=== PATIENT | male | born 1940 | race African-American/Black ===

== ENCOUNTER → 2017-05-27 | Outpatient (CLI) | payer OTHER ==
[2016-10-22 19:49] VITALS: BP 135/81
[2017-05-27 12:26] LABS: BASOPHILS % (AUTO) 0.9 % (0.2-1.0); EOSINOPHILS # (AUTO) 0.2 x10^3/uL (0.0-0.2); EOSINOPHILS % (AUTO) 5.2 % (0.9-2.9); HEMATOCRIT 36.7 % (42.0-54.0); HEMOGLOBIN 12.4 g/dL (13.5-18.0); LYMPHOCYTES % (AUTO) 25.6 % (21.0-51.0); MEAN CORPUSCULAR HEMOGLOBIN 29.8 pg (27.0-34.0); MEAN CORPUSCULAR HGB CONC 33.9 g/dL (33.0-35.0); MEAN CORPUSCULAR VOLUME 87.8 fL (80.0-100.0); MEAN PLATELET VOLUME 8.1 fL (7.4-11.0); MONOCYTES # (AUTO) 0.4 x10^3/uL (0.3-0.8); MONOCYTES % (AUTO) 10.8 % (0.0-13.0); NEUTROPHILS # (AUTO) 2.3 x10^3/uL (2.2-4.8); NEUTROPHILS % (AUTO) 57.5 % (42.0-75.0); PLATELET COUNT 182 X10^3/uL (150.0-450.0); RED BLOOD COUNT 4.18 X10^6/uL (4.7-6.0)
[2017-05-27 12:32] LABS: BLOOD UREA NITROGEN 15 mg/dL (7-18); CALCIUM 8.7 mg/dL (8.5-10.1); CARBON DIOXIDE 33.1 mmol/L (21-32); CHLORIDE 108 mmol/L (98-107); CREATININE 0.63 mg/dL (0.70-1.30); GLUCOSE 88 mg/dL (65-99); SODIUM 141 mmol/L (136-145); eGFR BLACK RACES > 60 (>60); eGFR NON BLACK RACES > 60 (>60)
== END ==
LOC: LAB 11:59
PROVIDERS: ATTEND Internal Medicine Cardiovascular Disease
DX: I10 Essential (primary) hypertension (principal); Z79.01 Long term (current) use of anticoagulants
CPT/HCPCS: 36415; 80048; 85025; 85610; 85730

== ENCOUNTER 2017-06-08 23:11 | Emergency (ER) | payer OTHER ==
[2017-06-08 23:16] VITALS: BP 133/75; BMI 27.1
[2017-06-08 23:48] LABS: BILIRUBIN,URINE NEGATIVE (NEGATIVE); BLOOD/HEMOGLOBIN,URINE 5+ (NEGATIVE); GLUCOSE, URINE NEGATIVE (NEGATIVE); KETONES,URINE NEGATIVE (NEGATIVE); LEUKOCYTE ESTERASE ,URINE 3+ (NEGATIVE); NITRITES,URINE NEGATIVE (NEGATIVE); PROTEIN,URINE 3+ (NEGATIVE); UROBILINOGEN,URINE NORMAL (NORMAL)
[2017-06-08 23:58] LABS: APPEARANCE,URINE CLOUDY (CLEAR); BACTERIA,URINE 2+ /HPF (NEGATIVE); COLOR,URINE BROWN (YELLOW); RBC,URINE TNTC /HPF (NEGATIVE); SQUAMOUS EPITHELIAL CELL,UR FEW /HPF (NEGATIVE)
[2017-06-09] MEDS ORDERED: TORADOL 60 MG VIAL IM ONE (00:04)
[2017-06-09] MEDS ORDERED: LEVAQUIN TAB 500 MG ONE (00:07)
[2017-06-09] MEDS ORDERED: TORADOL 60 MG VIAL ONE (00:07)
--- NOTE | 2017-06-09 00:09 | DR.GENAD ---
HPI - PCP Primary Care Physician: BENJAMÍN MOON - Complaint/Symptoms Chief Complaint Doctors Comments: Patient states he has been having severe LLQ pain for the past four hours getting progressively worst with hematuria. states he started having pain LLQ about 4 hours ago before the football game came and and he decided to law down for a few hours and when he woke up he went to the bathroom with a lot of blood in his urine since around 7pm. He denies chest pain, nasuea or vomiting. He denies any recent trauma. states the pain is about 5 of 10. Chief Complaint:: PT STATES" IT TRAVIS REAL BAD WHEN I PEE, MY LT LOWER BELLY HURTS" - Nurses notes reviewed Nurses Notes Review: Yes - Source History Provided: Patient - Mode of Arrival Mode of Arrival: Ambulatory - Timing Onset of Chief Complaint: 06/08/17 Came on: Gradually - Duration Duration: Constant How lon Duration: Hours - Location Location: left lower abdomen - Severity Severity: Moderate, Severe - Modifying Factors Worsens:: nothing Improves:: nothing PMH - PMH Past Medical History: Yes Past Medical History: Angina, Asthma Past Surgical History: Yes Surgical History: Angioplasty/Stents - Family History History of Family Medical Conditions: Yes Family Medical History: Cancer, [place] - Social History Does any household member use tobacco: No Alcohol Use: None Do you use any recreational Drugs:: No Lives With: Family Lives Where: Home - infectious screening In the last 2 months have you had wt loss of >10#?: NO Have you had fever, night sweats or hemotysis?: No Have you traveled outside the country in the last 6 months?: No Isolation: Standard ROS - Review of Systems Constitutional: No Symptoms Reported. negative: See HPI, Chills, Diaphoresis, Fever, Malaise, Weakness, Irritable, Fatigue, Loss of Appetite, Other Eyes: No Symptoms Reported. negative: See HPI, Eye Pain, Blurred Vision, Tearing, Discharge, Photophobia, Diplopia, Other ENTM: No Symptoms Reported Respiratoy: No Symptoms Reported Cardiovascular: No Symptoms Reported. negative: See HPI, Chest Pain, Edema, Palpitations, Syncope, Cyanosis, Skin Mottling, Other Gastrointestinal/Abdominal: No Symptoms Reported, Abdominal Pain. negative: See HPI, Constipation, Diarrhea, Nausea, Vomiting, Food Intolerance, Other Genitourinary: No Symptoms Reported, Dysuria, Hematuria. negative: See HPI, Discharge, Frequency, Pain, Bleeding, Other Neurological: No Symptoms Reported Musculoskeletal: No Symptoms Reported, Back Integumentary: No Symptoms Reported Hematologic/Lymphatic: No Symptoms Reported. negative: See HPI, Anemia, Blood Clots, Easy Bleeding, Easy Bruising, Swollen Glands, Lymphadenopathy, Other Endocrine: No Symptoms Reported. negative: See HPI, Excessive Sweating, Flushing, Intolerance to Cold, Intolerance to Heat, Increased Hunger, Increased Thirst, Increased Urine, Unexplained Weight Gain, Unexplained Weight Loss, Failure to Thrive, Decreased Appetite, Other Psychiatric: No Symptoms Reported. negative: See HPI, Anxiety, Depression, Hallucinations, Excessive crying, Suicidal, Other PE - Vital Signs Vitals: Temperature 98.6 F Pulse Rate 92 Respiratory Rate 18 Blood Pressure [Left Arm] 137/85 Blood Pressure 133/75 O2 Sat by Pulse Oximetry 97 - General Limitations: No Limitations General Appearance: Alert, In Distress (moderate) - Head Head Exam: Normal Inspection, Atraumatic, Normocephalic - Eyes Eye exam: Normal Appearance, PERRL, EOMI. negative: Scleral Icterus, Conjunctival Injection, Nystagmus, Miosis, Mydrasis, Periorbital Swelling, Periorbital Tenderness, Other - ENT ENT Exam: Normal Exam, Normal Oropharynx, Normal External Ear Exam, Mucous Membranes Moist, TM's Normal Bilaterally External Ear Exam: Normal External Inspection TM/Canal Exam: Bilateral Normal Nose Exam: Normal Nose Exam Mouth Exam: Normal Inspection. negative: Drooling, Trismus, Lip Swelling, Tongue Elevation, Tongue Swelling, Laceration, Other Throat Exam: Normal Inspection. negative: Tonsillar Erythema, Tonsillomegaly, Tonsillar Exudate, R Peritonsillar Mass, L Peritonsillar Mass, Muffled Voice, Other - Neck Neck Exam: Normal Inspection, Full ROM, Trachea Midline. negative: Tenderness, Meningismus, Lymphadenopathy, Thyromegaly, Other - Chest Chest Inspection: Normal Inspection, Symmetric Chest Wall Rise. negative: Tenderness, Rash, Abscess, Other - Respiratory Respiratory Exam: Normal Lung Sounds Bilat. negative: Accessory Muscle Use, Chest Wall Tenderness, Prolonged Expiratory Phase, Respiratory Distress, Stridor , Other Respiratory Exam: Bilateral Clear to Auscultation - Cardiovascular Cardiovascular Exam: Regular Rate, Normal Rhythm, Normal Heart Sounds. negative : Bradycardia, Tachycardia, Irregular Rhythm, Systolic Murmur, Diastolic Murmur , Rubs, Gallop, Clicks, JVD, +S1, +S2, +S3, +S4, Other - Abdominal Exam Abdominal Exam: Normal Inspection, Normal Bowel Sounds, Soft, Tenderness (LLQ tenderness with guarding), Guarding, Dimnished Bowel Sounds, Hernia (left inguinal fullness 3-4 cm) Abdominal Tenderness: LLQ, Moderate - Extremities Extremities Exam: Normal Inspection, Full ROM, Normal Capillary Refill. negative: Tenderness, Edema, Joint Swelling, Calf Tenderness, Other - Back Back Exam: Normal Inspection, Full ROM, (L) CVA Tenderness - Neurologic Neurological Exam: Alert, Oriented X3, CN II-XII Intact, Reflexes Normal. negative: Normal Gait (gait not tested) - Psychiatric Psychiatric Exam: Normal Affect, Normal Mood. negative: Depressed, Agitated, Anxious, Flat Affect, Manic, Homicidal Ideation, Suicidal Ideation, Other - Skin Skin Exam: Warm, Dry, Intact, Normal Color ROR - Labs Reviewed Laboratory Results Reviewed?: Yes (all labs and x-ray results reviewed and discussed with parent and his sons) Laboratory: Specimen Type Clean catch urine 06/08/17 23:38 Urine Color Brown (YELLOW) 06/08/17 23:38 Urine Appearance Cloudy (CLEAR) 06/08/17 23:38 Urine pH 6.0 (5.0 - 8.0) 06/08/17 23:38 Ur Specific [place] 1.020 (1.000-1.030) 06/08/17 23:38 Urine Protein 3+ (NEGATIVE) 06/08/17 23:38 Urine Glucose (UA) Negative (NEGATIVE) 06/08/17 23:38 Urine Ketones Negative (NEGATIVE) 06/08/17 23:38 Urine Occult Blood 5+ (NEGATIVE) 06/08/17 23:38 Urine Nitrite Negative (NEGATIVE) 06/08/17 23:38 Urine Bilirubin Negative (NEGATIVE) 06/08/17 23:38 Urine Urobilinogen Normal (NORMAL) 06/08/17 23:38 Ur Leukocyte Esterase 3+ (NEGATIVE) 06/08/17 23:38 Urine RBC Tntc /HPF (NEGATIVE) 06/08/17 23:38 Urine WBC Tntc /HPF (NEGATIVE) 06/08/17 23:38 Ur Squamous Epith Cells Few /HPF (NEGATIVE) 06/08/17 23:38 Urine Bacteria 2+ /HPF (NEGATIVE) 06/08/17 23:38 Ur Culture Indicated? Yes/culture set up 06/08/17 23:38 - XRAY XRAY Interpreted by: Radiologist (CT abdomen: Minimalinflammatory change proximal sigmoid colon suggestive for early diverticulitis and prostatitis. Nonobstrutiing bilateral lower pole renal stones.) - Diagnosis Discharge Problem: Diverticulitis of colon, Bilateral kidney stones, Prostatitis Abdominal pain Qualifiers: Abdominal location: left lower quadrant Qualified Code(s): R10.32 - Left lower quadrant pain Urinary tract infection Qualifiers: Urinary tract infection type: site unspecified - Discharge Plan Disposition: 01 HOME, SELF-CARE Condition: Stable Prescriptions: Levofloxacin [LEVAQUIN TAB 500 MG *] 500 mg PO Q24H #10 tab Metronidazole [Flagyl Tab 250 mg] 250 mg PO TID #30 tab Tramadol HCl [ULTRAM 50 MG *] 50 mg PO BID PRN #30 tab PRN Reason: Pain - Follow ups/Referrals Follow ups/Referrals: NFD,None [Primary Care Provider] - 3 days - Instructions Instructions: Urinary Tract Infection, Adult, Urinary Tract Infection, Adult, [id number], Diverticulitis, [id number], Kidney Stones, [id number], Hematuria, Pediatric, Abdominal Pain, Adult, [id number]
[2017-06-09] MEDS ORDERED: LEVAQUIN TAB 500 MG PO SCH (01:00)
--- NOTE | 2017-06-09 01:37 | CT ---
CT abdomen and pelvis without contrast Indication: Left lower quadrant pain. Hematuria. Comparison: 11/02/2014. Technique: CT images of the abdomen and pelvis were obtained without contrast. Automatic exposure con trol was utilized. Findings: There is marked lower lumbar spondylosis. Generalized osteopenia. No aggressive osseous les ions are seen. The lung bases are clear. Within the limitations of a noncontrast study, the liver, gallbladder, spleen, stomach, pancreas, and adrenals demonstrate no significant abnormality. There are punctate bilateral lower pole renal stone s. There is no hydronephrosis. No ureteral stones are identified. Note is made of 2 thin linear hyper densities within the proximal small bowel, both measuring approximately 2-2.5 cm in length and approx imately 2 mm in thickness. One of these seen within the duodenum (coronal image 27 and 28), with the other and the jejunum (coronal image 18). No marked associated bowel inflammation in these regions ap preciated. There are scattered colonic diverticula. There is some minimal pericolonic fat stranding with mesente nicholas congestion seen within the left lower quadrant adjacent to a short segment of the proximal sigmoi d. No pericolonic collection is seen. There is otherwise no significant bowel thickening or dilatatio n of the lower GI tract. The appendix appears normal. The urinary bladder and rectum are unremarkable. The prostate is normal in size, but there is lower p elvic fat stranding, appearing to be centered in the region of the prostate and mildly enlarged Semin al vesicles. No free fluid or adenopathy identified. Impression: 1. Minimal inflammatory change adjacent to a short segment of the proximal sigmoid colon is suggestiv e for early/mild diverticulitis. No evidence for abscess. 2. Fat stranding of the lower pelvis in the region of the prostate and seminal vesicles, suggesting p rostatitis. Correlation is recommended. 3. There are 2 thin linear hyperdensities within the proximal small bowel lumen as above, suggestive for ingested foreign bodies, possibly bones. There is no obvious bowel inflammation in these regions. 4. Punctate nonobstructing bilateral lower pole renal stones. Reported By:
[2017-06-09] MEDS ORDERED: FLAGYL TAB 250 MG PO ONE ×2 (02:19→02:24)
[2017-06-09] MEDS ORDERED: TYLENOL #3 TAB (W/CODEINE) PO STA (02:19)
[2017-06-09] MEDS ORDERED: PROTONIX TAB 40 MG PO ONE ×2 (02:20→02:24)
[2017-06-09] MEDS ORDERED: TYLENOL #3 TAB (W/CODEINE) PO ONE (02:24)
== END 2017-06-09 02:35 | disposition home or self-care (01) ==
LOC: ER 23:11
DX: K57.30 Diverticulosis of large intestine without perforation or abscess without bleeding (principal); N20.0 Calculus of kidney; N41.9 Inflammatory disease of prostate, unspecified; R10.32 Left lower quadrant pain; N39.0 Urinary tract infection, site not specified; B96.29 Other Escherichia coli [E. coli] as the cause of diseases classified elsewhere
CPT/HCPCS: 74176; 81001; 87086; 87088; 87186; 96372; 99283; J1885

== ENCOUNTER 2017-07-10 15:42 | Emergency (ER) | payer OTHER ==
[2017-07-10 16:05] VITALS: BP 143/78; BMI 28.9
[2017-07-10] MEDS ORDERED: DEMEROL INJ IM ONE (16:11)
[2017-07-10] MEDS ORDERED: DEMEROL INJ ONE (16:14)
--- NOTE | 2017-07-10 16:14 | DR.EXTPAIN ---
HPI - Time seen Time seen: 16:10 - PCP Primary Care Physician: DC GOFF GA - Complaint/Symptoms Chief Complaint Doctor Comments: Running to get into the house missed the step and injured his right ankle. Admits to being swollen 10 in severity, quality sharp, modifying factor ambulation. Chief Complaint:: RUNNING IN FROM THE RAIN AND FELL AFTER HE MISSED THE STEPS - Source History Provided: Patient - Mode of arrival Mode of Arrival: Ambulatory - Timing Onset of Chief Complaint: 07/10/17 PMH - PMH Past Medical History: Yes Past Medical History: Angina, Asthma Past Surgical History: Yes Surgical History: Angioplasty/Stents - Family History History of Family Medical Conditions: Yes Family Medical History: Cancer, [place] - Social History Type of Tobacco Use: None Alcohol Use: None Do you use any recreational Drugs:: No Lives With: Family Lives Where: Home - infectious screening In the last 2 months have you had wt loss of >10#?: NO Have you had fever, night sweats or hemotysis?: No Have you traveled outside the country in the last 6 months?: No Isolation: Standard ROS - Review of Systems Eyes: No Symptoms Reported ENTM: No Symptoms Reported Respiratoy: No Symptoms Reported Cardiovascular: No Symptoms Reported Gastrointestinal/Abdominal: No Symptoms Reported Genitourinary: No Symptoms Reported Neurological: No Symptoms Reported Musculoskeletal: Ankle (right, tender swollen) Integumentary: No Symptoms Reported Hematologic/Lymphatic: No Symptoms Reported Endocrine: No Symptoms Reported Psychiatric: No Symptoms Reported All Other Systems: Reviewed and Negative PE - Vital Signs Vitals: Temperature 97.4 F Pulse Rate 78 Respiratory Rate 14 Blood Pressure [Left Arm] 137/85 Blood Pressure 143/78 O2 Sat by Pulse Oximetry 99 - General Limitations: No Limitations General Appearance: Alert, In No Apparent Distress - Head Head Exam: Normal Inspection, Atraumatic - Eyes Eye exam: Normal Appearance, PERRL, EOMI - ENT ENT Exam: Normal Exam - Neck Neck Exam: Normal Inspection, Full ROM - Chest Chest Inspection: Normal Inspection - Respiratory Respiratory Exam: Normal Lung Sounds Bilat Respiratory Exam: Bilateral Clear to Auscultation - Cardiovascular Cardiovascular Exam: Regular Rate, Normal Rhythm - Abdominal Exam Abdominal Exam: Normal Inspection, Normal Bowel Sounds Abdominal Tenderness: negative: RUQ, RLQ, LUQ, LLQ, Epigastrium, Suprapubic, Diffuse, Mild, Moderate, Severe, Other - Extremities Extremities Exam: Normal Inspection, Full ROM - Upper Extremities Shoulder Exam: Normal Inspection, Full ROM Arm Exam: Normal Inspection Elbow Exam: Normal Inspection, Full ROM Forearm Exam: Normal Inspection, Full ROM Hand Exam: Normal Inspection Neuromotor Exam: Normal Exam Neurosensory Exam: Normal Exam Upper Ext. Vascular Exam: Capillary Refill (normal) - Lower Extremities Hip/Pelvis Exam: Normal Inspection Upper Leg Exam: Normal Inspection Knee Exam: Normal Inspection Lower Leg Exam: Normal Inspection, Full ROM Ankle Exam: Tenderness, Swelling Foot/Toe Exam: Normal Inspection Neurovascular/Tendon Exam: Normal Capillary Refill Gait Exam: Not Tested/Not Observed - Back Back Exam: Normal Inspection - Neurological Neurological Exam: Alert, Oriented X3, CN II-XII Intact - Psychiatric Psychiatric Exam: Normal Affect - Skin Skin Exam: Warm, Dry, Intact Course - Reevaluation 1st: Unchanged ROR - XRAY XRAY Interpreted by: Radiologist (Minimally displalced fractures are seen of the 1st [id number] metarsal heads. The 1st metatarsal head fracture appears to have intra articular extension. Question of avulsion fracture of the medial/ proximal 1st metatarsal. There is some dorsal displacement of the proximal metatarsals on the lateral view. This is concerning for subluxation. Cortical irregularity is seen within the antior calcaneal neck with may represent a nondisplaced fracture. Marked soft tissue swelling is seen about the forefoot. The visualized Lisfranc joint appears intact on these nonweightbearing views. Remaining osseous structures appear intact..Impression: Multiple right foot fractures as above.) - Diagnosis Discharge Problem: Multiple fractures of foot Qualifiers: Encounter type: initial encounter Fracture type: closed Laterality: right Qualified Code(s): S92.901A - Unspecified fracture of right foot, initial encounter for closed fracture - Discharge Plan Condition: Stable - Follow ups/Referrals Follow ups/Referrals: NFD,None [Primary Care Provider] - 3 days - Instructions
--- NOTE | 2017-07-10 20:26 | RAD ---
HISTORY: Right foot pain and swelling status post fall. Study: Three nonweightbearing views of the right foot. Comparison: Right ankle series dated August 21, 2015. Findings: Minimally displaced fractures are seen of the 1st through 3rd metatarsal heads. The 1st metatarsal he ad fracture appears to have intra-articular extension. Question of avulsion fracture of the medial/pr oximal 1st metatarsal. There is some dorsal displacement of the proximal metatarsals on the lateral v iew. This is concerning for subluxation. Cortical irregularity is seen within the anterior calcaneal neck which may represent a nondisplaced fracture. Marked soft tissue swelling is seen about the foref oot. The visualized Lisfranc joint appears intact on these nonweightbearing views. Remaining osseous structures appear intact. IMPRESSION: 1. Multiple right foot fractures as above. 2. Inadequate evaluation of the Lisfranc joint. If clinically concerned, consider MRI or CT of the [facility] foot. Reported By:
== END 2017-07-10 20:58 | disposition home or self-care (01) ==
LOC: ER 16:07
DX: S92.901A Unspecified fracture of right foot, initial encounter for closed fracture (principal); W19.XXXA Unspecified fall, initial encounter; Y92.9 Unspecified place or not applicable
CPT/HCPCS: 29515; 73630; 96372; 99282; J2175

== ENCOUNTER → 2017-07-24 | Outpatient (CLI) | payer OTHER ==
[2017-07-10 16:05] VITALS: BP 143/78
--- NOTE | 2017-07-24 11:45 | CT ---
HISTORY: Multiple right foot fractures. Study: CT right foot without contrast Comparison: Right foot series dated July 10, 2017. Technique: Multiple axial images of the right foot without administration of IV contrast. Sagittal a nd coronal reformats were performed and reviewed. Dose reduction techniques including Automated Expos ure Control (AEC) and adjustment of mA and kV were utilized. Findings: Comminuted and dorsally displaced intra-articular fracture of the proximal 1st metatarsal with associ ated nondisplaced fracture of the medial cuneiform. There is associated widening of the Lisfranc join t with partial to complete tear of the Lisfranc ligaments. Minimally displaced fractures of the 2nd a nd 3rd distal metatarsals appear unchanged given technique. Fractures of the sesamoid bones of the ri ght great toe are also seen. Remaining osseous structures appear intact. [id number]-wl-[id number] degenerativ e changes are seen about the foot and ankle. Persistent soft tissue swelling and edema is seen about the mid and forefoot. Remaining ligaments and tendons appear intact. IMPRESSION: 1. Constellation of findings as above likely representing partial to complete tear of the Lisfranc li elier. Recommend MRI of the right forefoot for further characterization. 2. Multiple foot fractures as above. Reported By:
== END ==
LOC: RAD 09:54
PROVIDERS: ATTEND Orthopaedic Surgery
DX: S92.324A Nondisplaced fracture of second metatarsal bone, right foot, initial encounter for closed fracture (principal); X58.XXXA Exposure to other specified factors, initial encounter
CPT/HCPCS: 73700

== ENCOUNTER → 2017-08-08 | Outpatient (CLI) | payer OTHER ==
[2017-07-10 16:05] VITALS: BP 143/78
[2017-08-08 14:40] LABS: BASOPHILS % (AUTO) 1.4 % (0.2-1.0); EOSINOPHILS # (AUTO) 0.2 x10^3/uL (0.0-0.2); HEMATOCRIT 39.3 % (42.0-54.0); HEMOGLOBIN 13.2 g/dL (13.5-18.0); LYMPHOCYTES # (AUTO) 1.3 X10^3/uL (1.3-2.9); LYMPHOCYTES % (AUTO) 36.7 % (21.0-51.0); MEAN CORPUSCULAR HGB CONC 33.6 g/dL (33.0-35.0); MEAN CORPUSCULAR VOLUME 86.4 fL (80.0-100.0); MEAN PLATELET VOLUME 8.4 fL (7.4-11.0); MONOCYTES # (AUTO) 0.4 x10^3/uL (0.3-0.8); MONOCYTES % (AUTO) 10.3 % (0.0-13.0); NEUTROPHILS # (AUTO) 1.6 x10^3/uL (2.2-4.8); NEUTROPHILS % (AUTO) 46.6 % (42.0-75.0); PLATELET COUNT 197 X10^3/uL (150.0-450.0); RED BLOOD COUNT 4.55 X10^6/uL (4.7-6.0); RED CELL DISTRIBUTION WIDTH 14.2 % (11.6-16.5); WHITE BLOOD COUNT 3.5 X10^3/uL (3.6-10.0)
[2017-08-08 14:43] LABS: BILIRUBIN,URINE NEGATIVE (NEGATIVE); BLOOD/HEMOGLOBIN,URINE 2+ (NEGATIVE); GLUCOSE, URINE NEGATIVE (NEGATIVE); KETONES,URINE NEGATIVE (NEGATIVE); LEUKOCYTE ESTERASE ,URINE NEGATIVE (NEGATIVE); NITRITES,URINE NEGATIVE (NEGATIVE); PROTEIN,URINE 1+ (NEGATIVE); UROBILINOGEN,URINE NORMAL (NORMAL)
[2017-08-08 14:49] LABS: AMORPHOUS SEDIMENT,UR TRACE /HPF (NEGATIVE); APPEARANCE,URINE CLEAR (CLEAR); BACTERIA,URINE TRACE /HPF (NEGATIVE); COLOR,URINE YELLOW (YELLOW); SQUAMOUS EPITHELIAL CELL,UR NEGATIVE /HPF (NEGATIVE)
[2017-08-08 14:50] LABS: MUCUS,URINE MODERATE /HPF (NEGATIVE)
[2017-08-08 14:55] LABS: ALANINE AMINOTRANSFERASE 28 Units/L (12-78); ALBUMIN 3.7 g/dL (3.4-5.0); ALKALINE PHOSPHATASE 102 Units/L (46-116); ASPARTATE AMINO TRANSFERASE 24 Units/L (15-37); BLOOD UREA NITROGEN 22 mg/dL (7-18); CALCIUM 9.1 mg/dL (8.5-10.1); CARBON DIOXIDE 30.8 mmol/L (21-32); CHLORIDE 104 mmol/L (98-107); CREATININE 0.73 mg/dL (0.70-1.30); SODIUM 139 mmol/L (136-145); TOTAL PROTEIN 7.2 g/dL (6.4-8.2); eGFR BLACK RACES > 60 (>60); eGFR NON BLACK RACES > 60 (>60)
[2017-08-08 15:35] LABS: ERYTHROCYTE SEDIMENTATION RATE 10 MM/HOUR (0-15)
--- NOTE | 2017-08-08 15:40 | RAD ---
Examination: Chest, PA and lateral views History: Preop Comparison reference: 07/17/2012 Findings: Continued normal heart size, tortuous aorta, clear lungs and pleural spaces. Impression: No significant change; no acute disease. Reported By:
== END ==
LOC: LAB 13:27
PROVIDERS: ATTEND Orthopaedic Surgery
DX: Z01.818 Encounter for other preprocedural examination (principal); Z01.810 Encounter for preprocedural cardiovascular examination; Z01.811 Encounter for preprocedural respiratory examination; Z79.899 Other long term (current) drug therapy; Z11.8 Encounter for screening for other infectious and parasitic diseases; S93.324D Dislocation of tarsometatarsal joint of right foot, subsequent encounter; X58.XXXD Exposure to other specified factors, subsequent encounter
CPT/HCPCS: 36415; 71020; 80053; 81001; 85025; 85652; 86140; 87640; 87641; 93005; 93010

== ENCOUNTER 2017-08-12 08:04 | Day surgery (SDC) | payer OTHER ==
[~2017-08-12 08:04] MED LIST: MARCAINE 0.25% INJ ONE; XYLOCAINE 1% and EPINEPHRINE 1:100,000 ONE
[2017-08-12] MEDS ORDERED: D5 LR 1000 ML 1,000 ML IV ONE (08:11)
[2017-08-12] MEDS: NS 100 ML IV 100 ML IV ONE ×2 (09:50→11:00)
[2017-08-12] MEDS: ANCEF VIAL 1 GM ONE ×2 (09:51→11:00)
[2017-08-12] MEDS ORDERED: NAROPIN 0.75% EPI ONE ×2 (10:28→13:41)
[2017-08-12] MEDS ORDERED: XYLOCAINE 2 % (PLAIN) ONE (10:28)
[2017-08-12] MEDS ORDERED: DILAUDID INJ ONE (10:31)
[2017-08-12] MEDS ORDERED: BACTROBAN OINT ONE (10:42)
[2017-08-12] MEDS ORDERED: HYDROGEN PEROXIDE 3% ONE (10:42)
[2017-08-12] MEDS ORDERED: NS IRRIGATION 1000 ML 1,000 ML with BACITRACIN VIAL 50,000 UNT IR ONE ×2 (11:30)
[2017-08-12] MEDS ORDERED: BENADRYL INJ 50 MG VIAL IVP PRN (13:26)
[2017-08-12] MEDS: DILAUDID INJ ONE ×4 (13:26→13:41)
[2017-08-12] MEDS ORDERED: DILAUDID INJ IVP PRN (13:26)
[2017-08-12] MEDS ORDERED: ZOFRAN INJ 4 MG VIAL IVP PRN (13:26)
[2017-08-12] MEDS ORDERED: PHENERGAN INJ 25 MG IVP PRN (13:26)
[2017-08-12] MEDS ORDERED: REGLAN INJ 10 MG VIAL IVP PRN (13:26)
[2017-08-12] MEDS ORDERED: XYLOCAINE 1 % (PLAIN) ONE (13:41)
--- NOTE | 2017-08-12 14:04 | RAD ---
Examination: Right foot, three views History: ORIF Comparison reference: 07/10/2017 Findings: Follow-up views of the right foot were obtained through cast/splint. Detail is suboptimal. There are now identified surgical screw-plate fixation device at the 1st and 2nd tarsometatarsal join ts. There is no major displacement or deformity remaining. Again is noted advanced degenerative defor mity of the 1st MTP joint. There are slightly displaced subacute fractures of the distal 2nd and 3rd metatarsals. Impression: 1. Interval ORIF of original midfoot deformities with essentially anatomic position and alignment at this time. 2. Slight additional displacement and deformity of subacute fractures of 2nd and 3rd metatarsals. Reported By:
[2017-08-12] MEDS ORDERED: PERCOCET TAB 5/325 MG PO PRN (14:27)
[2017-08-12 15:03] VITALS: BP 158/68
[2017-08-12] MEDS ORDERED: DIPRIVAN VIAL ONE (15:48)
[2017-08-12] MEDS ORDERED: VERSED ONE (15:48)
[2017-08-12] MEDS ORDERED: SUPRANE IN ONE (15:48)
--- NOTE | 2017-08-13 17:29 | OR.GENERIC ---
Post-Op Note Generic - Post-Op Note Operative Report: preoperative diagnosis-RIGHT foot Lisfranc fracture dislocation, fracture of first metatarsal base, fracture of the second and third metatarsal neck. preoperative diagnosis-RIGHT foot Lisfranc fracture dislocation, fracture of first metatarsal base, fracture of the second and third metatarsal neck. procedure-open reduction internal fixation of Lisfranc fracture and the first metatarsal fracture with Lisfranc plate. Implant- Arthrex Lisfranc plate., Locking and nonlocking screws. Indication. Patient's 77-year-old male had a fall and injured the RIGHT foot. He saw me in the office and further investigation revealed that he had a Lisfranc fracture dislocation. Treatment discussions and natural history worked on with him. He wanted to proceed with an open reduction internal fixation of Lisfranc fracture. Risks and benefits were discussed with him. Complications including but not limited to infection, neurovascular damage, dorsalis pedis artery injury, persistent pain, arthritis of the wrist foot: Minimal and very few of the complications which were discussed with him. Patient understood and verbalized to see him. He consents for surgery. Patient was seen in the preoperative holding area. Limb was marked. Consent was revisited. Patient got a regional block.ppropriate antibiotic was given. He was brought to the operating room. Placed supine on the operating table. RIGHT lower limb prepped and draped. Tourniquet inflated.incision marked and made under C-arm guidance corresponding to the first webspace extending into the middle and medial cuneiform. Dissection carried down through the subcutis tissue and dorsalis pedis identified and protected throughout the case. Further dissection revealed a Lisfranc fracture dislocation. It showed intra- articular comminuted fracture of the base of the first metatarsal. It is already a month old and could not get it reduced. Again there was too much impaction so it was decided to proceed with arthrodesis of the first TMT. Using an osteotome the bone cut was made in the subchondral region exposing the subchondral bleeding bone. The rest of the articular fragments were removed from the first TMT. Reduction was achieved and held in place with a K wire. Attention was directed to the Lisfranc fracture dislocation. Reduction was achieved by direct manipulation and held in placed with a Cassidy clamp. Again temporary K wires were placed. An appropriate size Lisfranc plate was chosen and was provisionally fixed with the tack wire. It was checked and found to be satisfactory in AP, lateral and oblique views. Multiple nonlocking screws were used to suck the plate down. These are switched to locking in a sequential way maintaining the plate down. Tourniquet was deflated and hemostasis maintained. Wound was closed in layers. Sterile dressing applied. No drains were used. No complications were noted at the end of surgery. A splint was applied. Patient was woken up from surgery. He was shifted to the PACU in stable condition. Patient had adequate capillary refill and pulsation. Patient had a regional block. Postop x-rays show satisfactory placement of the implant and reduction of the Lisfranc fracture. There has been minimal displacement of the second and third metatarsal. But this seemed to be acceptable. The family was met in the waiting area and was updated about the condition. Follow-up instructions were given. Nonweightbearing until further advice was advised. Follow-up as advised
== END 2017-08-12 13:02 | disposition home or self-care (01) | DRG 505 ==
LOC: SURG1 08:04
PROVIDERS: ATTEND Orthopaedic Surgery
PROC: 0QSN04Z Reposition Right Metatarsal with Internal Fixation Device, Open Approach (ICD-10-PCS; principal; 2017-08-12 10:15)
DX: S93.324A Dislocation of tarsometatarsal joint of right foot, initial encounter (principal); S92.311A Displaced fracture of first metatarsal bone, right foot, initial encounter for closed fracture; S92.321A Displaced fracture of second metatarsal bone, right foot, initial encounter for closed fracture; S92.331A Displaced fracture of third metatarsal bone, right foot, initial encounter for closed fracture; X58.XXXA Exposure to other specified factors, initial encounter
CPT/HCPCS: 29515; 64445; 73630; 76000; 99100; A4222; S0020; J0690; J1170; J2001; J2250; J3490; J7120

== ENCOUNTER → 2017-08-27 | Outpatient (CLI) | payer OTHER ==
[2017-08-12 15:03] VITALS: BP 158/68
--- NOTE | 2017-08-27 11:36 | RAD ---
Examination: Right foot, three views History: Right foot pain Comparison reference: 08/12/2017 Findings: There is no change in appearance or position of the surgical fixation hardware at the 1st a nd 2nd tarsometatarsal joints. Healing displaced metatarsal fractures are again noted. Bony union is not complete. There is no new abnormality identified. Impression: Stable appearance of tarsometatarsal fusion procedure. Healing, displaced fractures of 2n d and 3rd metatarsals. Reported By:
== END ==
LOC: RAD 09:34
PROVIDERS: ATTEND Orthopaedic Surgery
DX: S93.324D Dislocation of tarsometatarsal joint of right foot, subsequent encounter (principal); X58.XXXD Exposure to other specified factors, subsequent encounter
CPT/HCPCS: 73630

== ENCOUNTER → 2017-10-09 | Outpatient (CLI) | payer OTHER ==
--- NOTE | 2017-10-09 14:07 | RAD ---
HISTORY: Status post fracture Study: Right foot: Three views Comparison: 08/27/2017 Findings: [id number] osteopenia is noted. Evidence for previous midfoot fusion is noted. This involves the tarsal metatarsal joints of the 1st and 2nd digits. Moderately severe degenerative changes noted in the 1st metatarsal-phalangeal joint. Evidence for moderately angulated fractures through the dis nina 2nd and 3rd metatarsals is noted. Callus formation is noted. The base of the 5th metatarsal is intact. Moderate degenerative changes noted in the midfoot. Moderate degenerative changes noted in the 1st tarsal metatarsal joint. IMPRESSION: 1. Degenerative change in the right foot as described above with moderate osteopenia. 2. Healing fractures of the distal 2nd and 3rd metatarsals. 3. Evidence for previous internal fixation involving the 1st and 2nd tarsal metatarsal joints. Reported By:
== END ==
LOC: RAD 10:38
PROVIDERS: ATTEND Orthopaedic Surgery
DX: S93.324D Dislocation of tarsometatarsal joint of right foot, subsequent encounter (principal); X58.XXXD Exposure to other specified factors, subsequent encounter
CPT/HCPCS: 73630